=== PATIENT | female | born 1980 | race American Indian/Alaskan Native ===

== ENCOUNTER 2017-03-21 14:06 | Emergency (ER) | payer SELFPAY ==
[2017-03-21 14:22] VITALS: BP 129/79
[2017-03-21 15:19] LABS: Basophils % (Auto) 0.6 % (0.0-1.8); Eosinophils % (Auto) 2.9 % (0.0-4.3); Hematocrit 39.3 % (30.3-42.9); Hemoglobin 13.3 gm/dl (10.1-14.3); Mean Corpuscular HGB Conc 34 % (30-34); Mean Corpuscular Hemoglobin 30 pg (28-32); Mean Corpuscular Volume 89 fl (79-97); Platelet Count 187 K/mm3 (140-440); Red Blood Count 4.42 M/mm3 (3.65-5.03); Red Cell Distribution Width 14.4 % (13.2-15.2); White Blood Count 8.5 K/mm3 (4.5-11.0)
[2017-03-21 15:25] LABS: Bilirubin,Urine NEG (Negative); Blood,Urine LG (Negative); Ketones,Urine NEG (Negative); Leukocyte Esterase,Urine MOD (Negative); Mucus,Urine FEW /HPF; Nitrite,Urine NEG (Negative)
--- NOTE | 2017-03-21 16:58 | Ultrasound Report ---
OB ultrasound: with bleeding. Endovaginal and transabdominal imaging demonstrates an anteverted uterus measuring 4.1 x 5.4 x 9.3 cm. There is a hypoechoic mass in the uterine fundus measuring 3.3 cm. The endometrial thickness is approximately 21 mm. The upper endometrium is inhomogeneous and there is there is a mixed hypoechoic collection in the low uterine segment extending into the cervix. There is no significant vascularity with color imaging. No evidence of intrauterine gestation currently noted. The left ovary measures 3.2 cm and the right 2.7 cm. Impression: 1. Findings consistent with aborted . No definite POC and remaining endometrial contents consistent with clot. 2. Fundal fibroid.
== END 2017-03-21 23:06 | disposition left against medical advice (07) ==
LOC: ED 14:06
DX: N93.9 Abnormal uterine and vaginal bleeding, unspecified (principal); Z53.21 Procedure and treatment not carried out due to patient leaving prior to being seen by health care provider
CPT/HCPCS: 36415; 76801; 76817; 81001; 84702; 85025; 86850; 86900; 86901